=== PATIENT | male | born 1930 | race Caucasian/White ===

== ENCOUNTER 2016-08-19 10:23 | Emergency (ER) | payer OTHER, MEDICARE ==
[~2016-08-19] VITALS: Ht 175.3 cm; Wt 86.2 kg
[2016-08-19 10:30] VITALS: BP_SYST 159
--- NOTE | 2016-08-19 10:35 | NUR ---
Pt placed to ER bed 07.
--- NOTE | 2016-08-19 10:40 | NUR ---
Patient came to ED with complaint of eye irritation since this AM. Patient presents to his left eye slight swelling, dark redness to sclera, no changes to his visual acuity. No other complaints/injuries per patient, none noted.
--- NOTE | 2016-08-19 10:50 | NUR ---
Dr. Handy at bedside examining patient, updated on patient condition.
[2016-08-19 11:05] VITALS: BP_SYST 155
--- NOTE | 2016-08-19 11:05 | NUR ---
Patient given written and verbal discharge instructions and verbalizes understanding. ER MD discussed with patient the results and treatment provided. Patient in stable condition. No Rx of given. Pain Scale 0/10. Opportunity for questions provided and answered. Patient left ED safetly accompanied by son.
== END 2016-08-19 11:05 | disposition home or self-care (01) ==
LOC: SED 10:29
DX: H11.32 Conjunctival hemorrhage, left eye (principal); R03.0 Elevated blood-pressure reading, without diagnosis of hypertension; E78.00 Pure hypercholesterolemia, unspecified; F41.9 Anxiety disorder, unspecified; Z86.73 Personal history of transient ischemic attack (TIA), and cerebral infarction without residual deficits; Z95.0 Presence of cardiac pacemaker
CPT/HCPCS: 99281

== ENCOUNTER 2017-11-25 06:59 | Inpatient (IN) | payer OTHER, MEDICARE ==
[~2017-11-25] VITALS: Ht 175.3 cm; Wt 85.7 kg
[2017-11-25 07:00] VITALS: BP_SYST 115
[2017-11-25] MEDS ORDERED: MORPHINE 4 MG/ML INJ. SYRINGE IVP ONE (07:15)
[2017-11-25] MEDS ORDERED: NACL 0.9% 1,000 ML IV ONE (07:15)
[2017-11-25] MEDS ORDERED: NITROGLYCERIN 0.4 MG TAB.SUBL SL ONE (07:15)
[2017-11-25] MEDS ORDERED: ASPIRIN 325 MG TABLET PO ONE (07:15)
[2017-11-25 07:27] LABS: BASOPHILS % (AUTO) 0.4 % (0.0-2.0); EOSINOPHILS % (AUTO) 0.1 % (0.0-4.0); HEMATOCRIT 44.7 % (36-54); HEMOGLOBIN 14.6 g/dL (14.0-18.0); LYMPHOCYTES # (AUTO) 0.8 K/uL (1.0-5.5); LYMPHOCYTES % (AUTO) 6.8 % (20.5-51.5); MEAN CORPUSCULAR HEMOGLOBIN 32 pg (27-31); MEAN CORPUSCULAR HGB CONC 33 % (32-36); MEAN CORPUSCULAR VOLUME 97 fL (79.0-98.0); MONOCYTES # (AUTO) 0.9 K/uL (0.0-1.0); MONOCYTES % (AUTO) 8.6 % (1.7-9.3); NEUTROPHILS # (AUTO) 9.3 K/uL (1.8-7.7); NEUTROPHILS % (AUTO) 84.1 % (40.0-70.0); PLATELET COUNT (AUTO) 148 K/uL (130-430); RED BLOOD CELL COUNT(AUTO) 4.63 MIL/uL (4.2-6.2); RED CELL DISTRIBUTION WIDTH 13.3 % (9.0-15.0)
[2017-11-25 07:41] LABS: ANION GAP 11 (5-15); CALCIUM 8.7 mg/dL (8.4-11.0); CHLORIDE 105 mmol/L (98-107); GLUCOSE 115 mg/dL (70-99); POTASSIUM 3.9 mmol/L (3.5-5.1); SODIUM SERUM 143 mmol/L (136-145); UREA NITROGEN, BLOOD 24 mg/dL (8-21)
[2017-11-25 07:50] LABS: ALANINE AMINOTRANSFERASE 28 U/L (12-78); ALBUMIN 3.8 g/dL (3.4-4.8); ASPARTATE AMINOTRANSFERASE 63 U/L (10-37); TOTAL BILIRUBIN 2.8 mg/dL (0.0-1.0)
[2017-11-25] MEDS ORDERED: SIMV10TA2 PO (08:11)
[2017-11-25] MEDS ORDERED: ALPR1TAB2 PO (08:11)
[2017-11-25] MEDS ORDERED: CLOP300T2 PO (08:11)
[2017-11-25] MEDS ORDERED: METO25TA3 PO (08:11)
[2017-11-25] MEDS ORDERED: TAMS0.4C96 PO (08:36)
[2017-11-25] MEDS ORDERED: CLOP75TA32 PO (08:36)
[2017-11-25] MEDS ORDERED: LIP10 PO (08:36)
[2017-11-25] MEDS ORDERED: SERT25TA PO (08:36)
[2017-11-25] MEDS ORDERED: [UNRECOGNIZED DRUG - CODE] OP (08:36)
[2017-11-25] MEDS ORDERED: METO50TA7 PO (08:36)
[2017-11-25 09:25] VITALS: BP_SYST 149
[2017-11-25] MEDS ORDERED: ONDANSETRON HCL 4 MG/2 ML VIAL IVP PRN (10:00)
[2017-11-25] MEDS ORDERED: MORPHINE 2 MG/ML INJ. SYRINGE IVP PRN ×2 (10:00)
[2017-11-25] MEDS ORDERED: HEPARIN SODIUM,PORCINE 5000 UNITS/ML VIAL SUBCUT ONE (10:00)
[2017-11-25] MEDS ORDERED: ACETAMINOPHEN 325 MG TABLET PO PRN (10:00)
[2017-11-25] MEDS ORDERED: POTASSIUM CHLORIDE 20 MEQ TAB.PRT.SR PO PRN (10:00)
[2017-11-25] MEDS ORDERED: MAGNESIUM SULFATE 50 ML IV PRN (10:00)
[2017-11-25] MEDS ORDERED: DOCUSATE SODIUM 100 MG CAPSULE PO PRN (10:00)
[2017-11-25] MEDS ORDERED: MUPIROCIN 2% TOPICAL OINTMENT 22 GM NS PRN (10:00)
[2017-11-25] MEDS ORDERED: LORazepam 1 MG TABLET PO PRN ×2 (10:30)
[2017-11-25] MEDS ORDERED: POLYETHYLENE GLYCOL 3350, 17 GM/ POWD.PACK PO ONE (10:30)
[2017-11-25 14:02] LABS: CLARITY/URINE CLEAR (CLEAR); COLOR,URINE YELLOW (YELLOW); PROTEIN URINE 1+ (NEGATIVE)
[2017-11-25 14:03] LABS: BILIRUBIN,URINE 1+ (NEGATIVE); BLOOD, URINE 3+ (NEGATIVE); GLUCOSE,URINE NEGATIVE (NEGATIVE); KETONES,URINE NEGATIVE (NEGATIVE); LEUKOCYTE ESTERASE ,URINE NEGATIVE (NEGATIVE); NITRITE, URINE NEGATIVE (NEGATIVE)
[2017-11-25 14:35] LABS: BACTERIA,URINE FEW /HPF (None Seen); MUCUS,URINE 1+ /LPF (None Seen); RBC,URINE 0-3 /HPF (0-3); WBC,URINE NONE SEEN /HPF (0-3)
[2017-11-25] MEDS: HEPARIN SODIUM,PORCINE 5000 UNITS/ML VIAL SUBCUT SCH ×2 (14:56→21:18)
[2017-11-25 15:02] VITALS: BP_SYST 137
[2017-11-25 20:00] VITALS: BP_SYST 137
[2017-11-25 20:03] VITALS: BP_SYST 133
[2017-11-25 20:06] VITALS: BP_SYST 126
[2017-11-25] MEDS ORDERED: ALPRAZolam 0.25 MG TABLET PO SCH (21:00)
[2017-11-25] MEDS ORDERED: ZOLPIDEM TARTRATE 5 MG TABLET PO PRN (21:00)
[2017-11-25] MEDS: guaiFENesin 200 MG/10 ML UDC PO PRN (21:19)
[2017-11-26] VITALS: BP_SYST 135
[2017-11-26 02:57] LABS: BASOPHILS % (AUTO) 0.3 % (0.0-2.0); EOSINOPHILS % (AUTO) 0.4 % (0.0-4.0); HEMATOCRIT 42.1 % (36-54); LYMPHOCYTES # (AUTO) 0.7 K/uL (1.0-5.5); LYMPHOCYTES % (AUTO) 14.1 % (20.5-51.5); MEAN CORPUSCULAR HEMOGLOBIN 32 pg (27-31); MEAN CORPUSCULAR HGB CONC 33 % (32-36); MEAN CORPUSCULAR VOLUME 96 fL (79.0-98.0); MONOCYTES # (AUTO) 0.4 K/uL (0.0-1.0); MONOCYTES % (AUTO) 9.5 % (1.7-9.3); NEUTROPHILS # (AUTO) 3.6 K/uL (1.8-7.7); NEUTROPHILS % (AUTO) 75.7 % (40.0-70.0); PLATELET COUNT (AUTO) 117 K/uL (130-430); RED BLOOD CELL COUNT(AUTO) 4.39 MIL/uL (4.2-6.2); RED CELL DISTRIBUTION WIDTH 13.6 % (9.0-15.0)
[2017-11-26 03:07] LABS: WHITE BLOOD COUNT (AUTO) 4.7 K/uL (4.8-10.8)
[2017-11-26 03:18] LABS: ANION GAP 8 (5-15); CALCIUM 8.3 mg/dL (8.4-11.0); CHLORIDE 106 mmol/L (98-107); CHOLESTEROL 110 mg/dL (<200); CREATININE 1.18 mg/dL (0.55-1.30); GLUCOSE 108 mg/dL (70-99); HDL CHOLESTEROL 55 mg/dL (>45); LDL CHOLESTEROL 49 mg/dL (<100); POTASSIUM 3.8 mmol/L (3.5-5.1); SODIUM SERUM 141 mmol/L (136-145); THYROID STIMULATING HORMONE 1.39 uIu/mL (0.34-4.82); TRIGLYCERIDES 64 mg/dL (30-150); UREA NITROGEN, BLOOD 22 mg/dL (8-21)
[2017-11-26] MEDS: guaiFENesin 200 MG/10 ML UDC PO PRN (06:04)
[2017-11-26] MEDS: HEPARIN SODIUM,PORCINE 5000 UNITS/ML VIAL SUBCUT SCH ×3 (06:05→21:30)
[2017-11-26 07:54] VITALS: BP_SYST 107; BP_SYST 144
[2017-11-26] MEDS: ATORVASTATIN 10 MG TABLET PO SCH (08:57)
[2017-11-26] MEDS: SERTRALINE HCL 50 MG TABLET PO SCH (08:58)
[2017-11-26] MEDS: TAMSULOSIN HCL 0.4 MG CAP PO SCH (08:59)
[2017-11-26] MEDS: POLYETHYLENE GLYCOL 3350, 17 GM/ POWD.PACK PO SCH (08:59)
[2017-11-26] MEDS ORDERED: IPRATROPIUM/ALBUTEROL SULFATE 3 ML AMPUL.NEB INH PRN (09:30)
[2017-11-26] MEDS ORDERED: FUROSEMIDE 40 MG/4 ML VIAL IVP ONE (09:30)
[2017-11-26] MEDS: METOPROLOL SUCCINATE 50 MG TAB.SR.24H (TOPROL XL) PO SCH (10:39)
[2017-11-26] MEDS: cefTRIAXone 1 GM in D5W 50 ML IV SCH (10:40)
[2017-11-26 12:35] VITALS: BP_SYST 125; BP_SYST 137
[2017-11-26 16:00] VITALS: BP_SYST 110; BP_SYST 99
[2017-11-26 21:57] VITALS: BP_SYST 115; BP_SYST 135; BP_SYST 138
[2017-11-27] VITALS (7 sets, daily range): BP systolic 116–151
[2017-11-27] MEDS: HEPARIN SODIUM,PORCINE 5000 UNITS/ML VIAL SUBCUT SCH ×3 (05:12→21:11)
[2017-11-27 07:11] LABS: BASOPHILS % (AUTO) 1.3 % (0.0-2.0); EOSINOPHILS # (AUTO) 0.1 K/uL (0.0-0.4); EOSINOPHILS % (AUTO) 1.6 % (0.0-4.0); HEMATOCRIT 41.6 % (36-54); HEMOGLOBIN 14.2 g/dL (14.0-18.0); LYMPHOCYTES # (AUTO) 0.8 K/uL (1.0-5.5); LYMPHOCYTES % (AUTO) 25.5 % (20.5-51.5); MEAN CORPUSCULAR HEMOGLOBIN 33 pg (27-31); MEAN CORPUSCULAR HGB CONC 34 % (32-36); MEAN CORPUSCULAR VOLUME 96 fL (79.0-98.0); MONOCYTES # (AUTO) 0.5 K/uL (0.0-1.0); NEUTROPHILS # (AUTO) 1.9 K/uL (1.8-7.7); NEUTROPHILS % (AUTO) 55.6 % (40.0-70.0); PLATELET COUNT (AUTO) 141 K/uL (130-430); RED BLOOD CELL COUNT(AUTO) 4.35 MIL/uL (4.2-6.2); RED CELL DISTRIBUTION WIDTH 13.2 % (9.0-15.0)
[2017-11-27 07:13] LABS: WHITE BLOOD COUNT (AUTO) 3.3 K/uL (4.8-10.8)
[2017-11-27 07:41] LABS: ANION GAP 7 (5-15); CALCIUM 8.7 mg/dL (8.4-11.0); CHLORIDE 107 mmol/L (98-107); CREATININE 1.13 mg/dL (0.55-1.30); GLUCOSE 105 mg/dL (70-99); POTASSIUM 3.6 mmol/L (3.5-5.1); SODIUM SERUM 142 mmol/L (136-145); UREA NITROGEN, BLOOD 26 mg/dL (8-21)
[2017-11-27] MEDS: POLYETHYLENE GLYCOL 3350, 17 GM/ POWD.PACK PO SCH (09:06)
[2017-11-27] MEDS: SERTRALINE HCL 50 MG TABLET PO SCH (09:06)
[2017-11-27] MEDS: TAMSULOSIN HCL 0.4 MG CAP PO SCH (09:07)
[2017-11-27] MEDS: METOPROLOL SUCCINATE 50 MG TAB.SR.24H (TOPROL XL) PO SCH (09:07)
[2017-11-27] MEDS: ATORVASTATIN 10 MG TABLET PO SCH (09:07)
[2017-11-27] MEDS ORDERED: FINASTERIDE 5 MG TABLET (PROSCAR) PO ONE (09:15)
[2017-11-27] MEDS: cefTRIAXone 1 GM in D5W 50 ML IV SCH (10:24)
[2017-11-28] VITALS: BP_SYST 128
[2017-11-28] MEDS: guaiFENesin 200 MG/10 ML UDC PO PRN ×2 (03:18→09:35)
[2017-11-28] MEDS: HEPARIN SODIUM,PORCINE 5000 UNITS/ML VIAL SUBCUT SCH (05:32)
[2017-11-28 06:39] LABS: ANION GAP 9 (5-15); CALCIUM 8.6 mg/dL (8.4-11.0); CHLORIDE 106 mmol/L (98-107); CREATININE 0.93 mg/dL (0.55-1.30); GLUCOSE 117 mg/dL (70-99); POTASSIUM 3.7 mmol/L (3.5-5.1); SODIUM SERUM 141 mmol/L (136-145); UREA NITROGEN, BLOOD 21 mg/dL (8-21)
[2017-11-28 08:00] VITALS: BP_SYST 149
[2017-11-28 08:06] LABS: HEMATOCRIT 41.7 % (36-54); HEMOGLOBIN 14.2 g/dL (14.0-18.0); MEAN CORPUSCULAR HEMOGLOBIN 33 pg (27-31); MEAN CORPUSCULAR HGB CONC 34 % (32-36); MEAN CORPUSCULAR VOLUME 97 fL (79.0-98.0); PLATELET COUNT (AUTO) 144 K/uL (130-430); RED CELL DISTRIBUTION WIDTH 13.1 % (9.0-15.0); WHITE BLOOD COUNT (AUTO) 8.1 K/uL (4.8-10.8)
[2017-11-28] MEDS ORDERED: FINASTERIDE 5 MG TABLET (PROSCAR) PO SCH (09:00)
[2017-11-28] MEDS: TAMSULOSIN HCL 0.4 MG CAP PO SCH (09:35)
[2017-11-28] MEDS: ATORVASTATIN 10 MG TABLET PO SCH (09:35)
[2017-11-28] MEDS: METOPROLOL SUCCINATE 50 MG TAB.SR.24H (TOPROL XL) PO SCH (09:36)
[2017-11-28] MEDS: SERTRALINE HCL 50 MG TABLET PO SCH (09:36)
[2017-11-28] MEDS: cefTRIAXone 1 GM in D5W 50 ML IV SCH (09:37)
[2017-11-28] MEDS: POLYETHYLENE GLYCOL 3350, 17 GM/ POWD.PACK PO SCH (09:37)
[2017-11-28 10:00] VITALS: BP_SYST 136; BP_SYST 147; BP_SYST 155
[2017-11-28] MEDS ORDERED: LORA-258 PO (10:55)
[2017-11-28] MEDS ORDERED: FINA5TAB3 PO (10:58)
[2017-11-28 11:06] LABS: BAND % (MANUAL) 2 % (0-6); BASOPHILS % (MANUAL) 0 % (0-2); EOSINOPHILS % (MANUAL) 0 % (0-7); LYMPHOCYTES % (MANUAL) 9 % (20-46); MONOCYTES % (MANUAL) 12 % (0-11)
[2017-11-28 11:12] VITALS: BP_SYST 147
[2017-11-28 11:27] VITALS: BP_SYST 147
== END 2017-11-28 12:28 | disposition home health service (06) | DRG 280 ==
LOC: SED 06:59 → STU 08:27
PROVIDERS: ADMIT General Practice; ATTEND General Practice
PROC: 4B02XSZ Measurement of Cardiac Pacemaker, External Approach (ICD-10-PCS; principal; 2017-11-27)
DX: I21.A1 Myocardial infarction type 2 (principal); N17.0 Acute kidney failure with tubular necrosis; N39.0 Urinary tract infection, site not specified; G90.9 Disorder of the autonomic nervous system, unspecified; I25.10 Atherosclerotic heart disease of native coronary artery without angina pectoris; F41.1 Generalized anxiety disorder; I10 Essential (primary) hypertension; F32.9 Major depressive disorder, single episode, unspecified; I95.1 Orthostatic hypotension; R29.6 Repeated falls; N40.0 Benign prostatic hyperplasia without lower urinary tract symptoms; I25.2 Old myocardial infarction; Z90.49 Acquired absence of other specified parts of digestive tract; Z87.891 Personal history of nicotine dependence; Z95.0 Presence of cardiac pacemaker; Z95.2 Presence of prosthetic heart valve; Z95.5 Presence of coronary angioplasty implant and graft; Z86.73 Personal history of transient ischemic attack (TIA), and cerebral infarction without residual deficits; Z79.899 Other long term (current) drug therapy; Z79.02 Long term (current) use of antithrombotics/antiplatelets
CPT/HCPCS: 36415; 70450-TC; 71045; 80048; 80053; 80061; 81000-TC; 83036; 83735-TC; 83880; 84443-TC; 84484; 85007; 85025; 85027; 93005; 93306; 93880; 95816; 96361; 96374; 97110-GP; 97116-GP; 97530-GP; 99285; J0696; J1644; J1940; J2270; J7060; J7620

== ENCOUNTER 2018-01-06 16:39 | Emergency (ER) | payer OTHER, MEDICARE ==
[~2018-01-06] VITALS: Ht 172.7 cm; Wt 68.0 kg
[~2018-01-06 16:39] MED LIST: CLOP75TA32 PO; FINA5TAB3 PO; LIP10 PO; LORA-258 PO; METO25TA3 PO; SIMV10TA2 PO; [UNRECOGNIZED DRUG - CODE] OP
[2018-01-06 16:55] VITALS: BP_SYST 141
[2018-01-06 18:25] LABS: BASOPHILS # (AUTO) 0.1 K/uL (0.0-0.2); BASOPHILS % (AUTO) 0.9 % (0.0-2.0); EOSINOPHILS # (AUTO) 0.2 K/uL (0.0-0.4); EOSINOPHILS % (AUTO) 2.6 % (0.0-4.0); HEMATOCRIT 47.3 % (36-54); HEMOGLOBIN 15.6 g/dL (14.0-18.0); LYMPHOCYTES # (AUTO) 1.3 K/uL (1.0-5.5); LYMPHOCYTES % (AUTO) 18.5 % (20.5-51.5); MEAN CORPUSCULAR HEMOGLOBIN 32 pg (27-31); MEAN CORPUSCULAR HGB CONC 33 % (32-36); MEAN CORPUSCULAR VOLUME 97 fL (79.0-98.0); MONOCYTES # (AUTO) 0.7 K/uL (0.0-1.0); MONOCYTES % (AUTO) 9.4 % (1.7-9.3); NEUTROPHILS % (AUTO) 68.6 % (40.0-70.0); PLATELET COUNT (AUTO) 212 K/uL (130-430); RED BLOOD CELL COUNT(AUTO) 4.86 MIL/uL (4.2-6.2); RED CELL DISTRIBUTION WIDTH 14.5 % (9.0-15.0); WHITE BLOOD COUNT (AUTO) 7.3 K/uL (4.8-10.8)
[2018-01-06 18:29] LABS: PROTHROMBIN TIME 10.4 SECS (9.5-12.5)
[2018-01-06 18:40] VITALS: BP_SYST 140
== END 2018-01-06 18:40 | disposition home or self-care (01) ==
LOC: SED 16:39
DX: R04.0 Epistaxis (principal); I10 Essential (primary) hypertension; E78.00 Pure hypercholesterolemia, unspecified; F41.9 Anxiety disorder, unspecified; Z95.0 Presence of cardiac pacemaker; Z98.890 Other specified postprocedural states; Z79.899 Other long term (current) drug therapy; Z86.73 Personal history of transient ischemic attack (TIA), and cerebral infarction without residual deficits
CPT/HCPCS: 36415; 85025; 85610-TC; 99284

== ENCOUNTER 2018-01-08 07:18 | Emergency (ER) | payer OTHER, MEDICARE ==
[~2018-01-08] VITALS: Ht 175.3 cm; Wt 83.0 kg
[2018-01-08 07:22] VITALS: BP_SYST 152
[2018-01-08] MEDS ORDERED: LORazepam 2 MG/ML VIAL (FOR ER USE) IM ONE (08:00)
[2018-01-08 08:32] VITALS: BP_SYST 152
== END 2018-01-08 08:32 | disposition home or self-care (01) ==
LOC: SED 07:18
DX: R04.0 Epistaxis (principal); F41.9 Anxiety disorder, unspecified; E78.00 Pure hypercholesterolemia, unspecified; I10 Essential (primary) hypertension; Z86.73 Personal history of transient ischemic attack (TIA), and cerebral infarction without residual deficits; Z95.0 Presence of cardiac pacemaker; Z79.899 Other long term (current) drug therapy
CPT/HCPCS: 96372; 99283; J2060